=== PATIENT | male | born 1995 | race American Indian/Alaskan Native ===

== ENCOUNTER 2017-03-10 07:25 | Emergency (ER) | payer OTHER ==
[2017-03-10] MEDS ORDERED: PROVENTIL IH ONE (07:46)
[2017-03-10] MEDS ORDERED: ATROVENT IH ONE (07:46)
--- NOTE | 2017-03-10 08:04 | XRay Report ---
ROUTINE CHEST, TWO VIEWS: HISTORY: Shortness of breath. The trachea, heart, mediastinal contour, lung herron and bony thorax are unremarkable. IMPRESSION: Unremarkable chest x-ray.
[2017-03-10] MEDS ORDERED: DELTASONE PO ONE (09:50)
--- NOTE | 2017-03-10 10:39 | Emergency Department Report ---
ED Asthma HPI - General Chief Complaint: Dyspnea/Respdistress Stated Complaint: shortness of breath Time Seen by Provider: 03/10/17 09:44 Source: patient Mode of arrival: Ambulatory Limitations: No Limitations - History of Present Illness Initial Comments: 21-year-old male with a past medical history asthma presents to the hospital complaining of acute wheezing and shortness of breath last night. Positive recent URI symptoms with mild cough that is minimally productive. No complaints of fever or pain. Patient ran out of his inhaler last night. Denies previous intubations. Patient received albuterol 5 mg and Atrovent 0.5 mg prior to my evaluation and reports improvement in symptoms. - Related Data Previous Rx's Medication Instructions Recorded Last Taken Type ALBUTEROL Inhaler [ProAir HFA 2 puff IH QID PRN #1 inhalation 03/10/17 Unknown Rx Inhaler] Prednisone [predniSONE 10 mg 10 mg PO .TAPER #1 tab.ds.pk 03/10/17 Unknown Rx (6-Day Pack, 21 Tabs)] Allergies Allergy/AdvReac Type Severity Reaction Status Date / Time No Known Allergies Allergy Verified 03/10/17 10:05 ED Review of Systems ROS: Stated complaint: shortness of breath Other details as noted in HPI Comment: All other systems reviewed and negative Other: Constitutional: No fevers chills Eyes: No eye pain visual changes ENT: No ear pain or throat pain Neck: Denies pain Respiratory: as per hpi Cardiovascular: Denies chest pain, palpitations, syncope GI: Denies abdominal pain, nausea, vomiting, diarrhea : Denies dysuria Musculoskeletal: Denies back pain Skin: Denies rash, lesions, erythema Neurologic: Denies headache, numbness, weakness Psychiatric: Denies suicidal ideation, hallucinations ED Past Medical Hx - Past Medical History Hx Asthma: Yes - Surgical History Past Surgical History?: No - Social History Smoking Status: Never Smoker Substance Use Type: None - Medications Home Medications: Home Medications Medication Instructions Recorded Confirmed Last Taken Type ALBUTEROL Inhaler [ProAir HFA 2 puff IH QID PRN #1 inhalation 03/10/17 Unknown Rx Inhaler] Prednisone [predniSONE 10 mg 10 mg PO .TAPER #1 tab.ds.pk 03/10/17 Unknown Rx (6-Day Pack, 21 Tabs)] ED Physical Exam - General Limitations: No Limitations - Other Other exam information: General: No limitations, patient is alert in no acute distress Head exam: Atraumatic, normocephalic Eyes exam: Normal appearance ENT: Moist mucous membrane, normal oropharynx Neck exam: Normal inspection, full range of motion, no meningismus nontender Respiratory exam: Clear to auscultation bilateral, no wheezes, rales, crackles ( after nebulized treatment) Cardiovascular: Normal rate and rhythm, normal heart sounds Abdomen: Soft, nondistended, and nontender, with normal bowel sounds, no rebound, or guarding Extremity: Full range of motion normal inspection no deformity Back: Normal Inspection, full range of motion, no tenderness Neurologic: Alert, oriented x3, cranial nerves intact, no motor or sensory deficit Psychiatric: normal affect, normal mood Skin: Warm, dry, intact ED Course Vital Signs 03/10/17 03/10/17 03/10/17 07:35 07:52 08:09 Temperature 98.4 F Pulse Rate 83 Pulse Rate [ 85 88 Bilateral Upper Lobe] Respiratory 18 Rate Respiratory 20 20 Rate [Bilateral Upper Lobe] Blood Pressure 140/96 Blood Pressure [Right] O2 Sat by Pulse 99 Oximetry 03/10/17 03/10/17 03/10/17 08:50 08:55 08:56 Temperature 97.8 F Pulse Rate 79 10 L Pulse Rate [ Bilateral Upper Lobe] Respiratory 10 L 10 L 10 L Rate Respiratory Rate [Bilateral Upper Lobe] Blood Pressure 134/82 Blood Pressure 134/82 [Right] O2 Sat by Pulse 98 100 100 Oximetry - Reevaluation(s) Reevaluation #1: 03/10/17 10:51 Patient is still feeling better after each treatment. ED Medical Decision Making - Radiology Data Radiology results: report reviewed (chest x-ray: No acute findings) - Medical Decision Making Patient feel better patient wheezing and shortness of breath improved after ED treatment. Prednisone initiated. Patient be discharged with treatment for acute asthma exacerbation with a refill of his inhale and prednisone. R - Differential Diagnosis asthma, pneumonia, bronchitis, pneumothorax Critical Care Time: No Critical care attestation.: If time is entered above; I have spent that time in minutes in the direct care of this critically ill patient, excluding procedure time. ED Disposition Clinical Impression: Asthma exacerbation Disposition: - TO HOME OR SELFCARE Is pt being admited?: No Does the pt Need Aspirin: No Condition: Stable Instructions: Asthma (ED) Additional Instructions: Take the medication as prescribed. Return if symptoms worsen. Prescriptions: ALBUTEROL Inhaler [ProAir HFA Inhaler] 2 puff IH QID PRN #1 inhalation PRN Reason: Shortness Of Breath Prednisone [predniSONE 10 mg (6-Day Pack, 21 Tabs)] 10 mg PO .TAPER #1 tab.ds.pk Referrals: PRIMARY CARE, [Primary Care Provider] - 3-5 Days [facility] [Provider Group] - 3-5 Days Time of Disposition: 11:00
[2017-03-10 11:03] VITALS: BP 107/71
== END 2017-03-10 11:02 | disposition home or self-care (01) ==
LOC: EDBD → ED 07:25
DX: J45.901 Unspecified asthma with (acute) exacerbation (principal)
CPT/HCPCS: 71020; 94640; 99283; J7512

== ENCOUNTER 2017-04-11 02:05 | Emergency (ER) | payer OTHER ==
[2017-04-11] MEDS ORDERED: DUONEB *Not for PRN Use IH ONE ×2 (03:06→04:09)
[2017-04-11] MEDS ORDERED: PROVENTIL IH ONE (03:06)
[2017-04-11] MEDS ORDERED: DELTASONE PO ONE (03:06)
--- NOTE | 2017-04-11 03:33 | Emergency Department Report ---
ED Asthma HPI - General Chief Complaint: Adult Asthma Stated Complaint: GEGE; ASTHMA ATTACK Time Seen by Provider: 04/11/17 02:47 Source: patient Mode of arrival: Ambulatory Limitations: No Limitations - History of Present Illness Initial Comments: 21-year-old male past medical history asthma, smoker presents with complaint of intermittent wheezing since earlier yesterday afternoon. Patient states he does not currently have an inhaler. Last asthma attack was approximately 3 weeks ago. Denies any history of intubations in the past for asthma. States he gets attacks periodically throughout the year. On exam patient is awake alert no audible wheezing or stridor no visible respiratory retractions. Patient can speak in full sentences fully lucid and cooperative and appears calm. Patient is receiving his first nebulizer dose during my clinical interview. Patient does not know his baseline peak flow. Patient states that several weeks ago he was given prescription for prednisone and albuterol but did not fill his prescriptions. States he is an active smoker. Denies chest pain fever chills or palpitations. MD Complaint: "asthma attack", wheezing -: hour(s) (9) Asthma History: childhood onset Severity: moderate Context: ran out of meds, medication non-compliance Treatments Prior to Arrival: inhaled bronchodilator - Related Data Current Asthma Therapy: inhaled bronchodilator Previous Rx's Medication Instructions Recorded Last Taken Type ALBUTEROL Inhaler [ProAir HFA 2 puff IH QID PRN #1 inhalation 03/10/17 Unknown Rx Inhaler] Prednisone [predniSONE 10 mg 10 mg PO .TAPER #1 tab.ds.pk 03/10/17 Unknown Rx (6-Day Pack, 21 Tabs)] Albuterol Sulfate [Ventolin HFA] 2 puff IH Q4H PRN #1 hfa.aer.ad 04/11/17 Unknown Rx predniSONE [Deltasone] 40 mg PO QDAY #10 tablet 04/11/17 Unknown Rx Allergies Allergy/AdvReac Type Severity Reaction Status Date / Time No Known Allergies Allergy Verified 03/10/17 10:05 ED Review of Systems ROS: Stated complaint: GEGE; ASTHMA ATTACK Other details as noted in HPI Constitutional: denies: chills, fever Eyes: denies: eye pain, eye discharge, vision change ENT: denies: ear pain, throat pain Respiratory: wheezing. denies: cough, shortness of breath Cardiovascular: denies: chest pain, palpitations Endocrine: no symptoms reported Gastrointestinal: denies: abdominal pain, nausea, diarrhea Genitourinary: denies: urgency, dysuria Musculoskeletal: denies: back pain, joint swelling, arthralgia Skin: denies: rash, lesions Neurological: denies: headache, weakness, paresthesias Psychiatric: denies: anxiety, depression Hematological/Lymphatic: denies: easy bleeding, easy bruising ED Past Medical Hx - Past Medical History Hx Arthritis: Yes Hx Asthma: Yes - Surgical History Past Surgical History?: No - Social History Smoking Status: Current Every Day Smoker Substance Use Type: Alcohol - Medications Home Medications: Home Medications Medication Instructions Recorded Confirmed Last Taken Type ALBUTEROL Inhaler [ProAir HFA 2 puff IH QID PRN #1 inhalation 03/10/17 Unknown Rx Inhaler] Prednisone [predniSONE 10 mg 10 mg PO .TAPER #1 tab.ds.pk 03/10/17 Unknown Rx (6-Day Pack, 21 Tabs)] Albuterol Sulfate [Ventolin HFA] 2 puff IH Q4H PRN #1 hfa.aer.ad 04/11/17 Unknown Rx predniSONE [Deltasone] 40 mg PO QDAY #10 tablet 04/11/17 Unknown Rx ED Physical Exam - General Limitations: No Limitations General appearance: alert, in no apparent distress - Head Head exam: Present: atraumatic, normocephalic - Eye Eye exam: Present: normal appearance - ENT ENT exam: Present: mucous membranes moist - Neck Neck exam: Present: normal inspection - Respiratory Respiratory exam: Present: normal lung sounds bilaterally, wheezes (bilateral fine wheezes lower lung herron). Absent: respiratory distress - Cardiovascular Cardiovascular Exam: Present: regular rate, normal rhythm. Absent: systolic murmur, diastolic murmur, rubs, gallop - GI/Abdominal GI/Abdominal exam: Present: soft, normal bowel sounds - Rectal Rectal exam: Present: deferred - Extremities Exam Extremities exam: Present: normal inspection - Back Exam Back exam: Present: normal inspection - Neurological Exam Neurological exam: Present: alert, oriented X3 - Psychiatric Psychiatric exam: Present: normal affect, normal mood - Skin Skin exam: Present: warm, dry, intact, normal color. Absent: rash ED Course Vital Signs 04/11/17 02:12 Temperature 98.5 F Pulse Rate 104 H Respiratory 20 Rate Blood Pressure 119/81 O2 Sat by Pulse 100 Oximetry ED Medical Decision Making - Medical Decision Making A/P: Asthma exacerbation, reactive airway disease 1- refill on albuterol inhaler. I provided patient with information for good Rx discounts on albuterol and prednisone 2- short course prednisone/taper 3- normal vital signs before discharge, patient does not have any audible wheezing or stridor or retractions before discharge. 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 ED Disposition Clinical Impression: Wheezing Reactive airway disease with wheezing Qualifiers: Asthma severity: mild Asthma persistence: intermittent Asthma complication type : with acute exacerbation Qualified Code(s): J45.21 - Mild intermittent asthma with (acute) exacerbation Asthma exacerbation Qualifiers: Asthma severity: mild Asthma persistence: intermittent Qualified Code(s): J45.21 - Mild intermittent asthma with (acute) exacerbation Disposition: DC-01 TO HOME OR SELFCARE Is pt being admited?: No Does the pt Need Aspirin: No Condition: Stable Instructions: Asthma (ED) Prescriptions: Albuterol Sulfate [Ventolin HFA] 2 puff IH Q4H PRN #1 hfa.aer.ad PRN Reason: Shortness Of Breath predniSONE [Deltasone] 40 mg PO QDAY #10 tablet Referrals: [facility]– [place][Note 2] [Outside] - 3-5 Days [facility] [Provider Group] - 3-5 Days Forms: Work/School Release Form(ED) Time of Disposition: 04:17
[2017-04-11 04:21] VITALS: BP 137/80
== END 2017-04-11 04:39 | disposition home or self-care (01) ==
LOC: ED 02:05
DX: J45.21 Mild intermittent asthma with (acute) exacerbation (principal); F17.200 Nicotine dependence, unspecified, uncomplicated
CPT/HCPCS: 99282; J7512

== ENCOUNTER 2019-02-21 09:03 | Emergency (ER) | payer SELFPAY ==
[2019-02-21] MEDS ORDERED: ZOFRAN IV ONE (09:08)
[2019-02-21] MEDS ORDERED: TORADOL IV ONE (09:08)
[2019-02-21] MEDS ORDERED: NACL 0.9% 1000 ML 1,000 ML IV ONE (09:08)
--- NOTE | 2019-02-21 09:12 | Emergency Department Report ---
ED Abdominal Pain HPI - General Stated Complaint: ABDOMINAL PAIN Time Seen by Provider: 02/21/19 09:06 Source: patient Limitations: No Limitations - History of Present Illness Initial Comments: 23-year-old male, history of asthma, presents to ED with left lower quadrant pain onset 1 hour ago upon waking. Patient reports associated nausea, vomiting. Denies diarrhea. Patient states he feels as if he needs to either urinate or have a bowel movement, but has not done either. Patient denies fever. Patient given Toradol 30 mg by EMS. Patient reports relief. MD Complaint: abdominal pain -: hour(s) (1), This morning Location: [facility] Radiation: none Migration to: no migration Severity: moderate Quality: cramping, sharp Consistency: constant Improves With: vomiting Worsens With: nothing Associated Symptoms: nausea, vomiting. denies: diarrhea, fever, dysuria, hematuria - Related Data Previous Rx's Medication Instructions Recorded Last Taken Type ALBUTEROL Inhaler (OR & NICU) 2 puff IH QID PRN #1 inhalation 03/10/17 Unknown Rx [ProAir HFA Inhaler] Prednisone [predniSONE 10 mg 10 mg PO .TAPER #1 tab.ds.pk 03/10/17 Unknown Rx (6-Day Pack, 21 Tabs)] Albuterol Sulfate [Ventolin HFA] 2 puff IH Q4H PRN #1 hfa.aer.ad 04/11/17 Unknown Rx predniSONE [Deltasone] 40 mg PO QDAY #10 tablet 04/11/17 Unknown Rx HYDROcodone/APAP 5-325 [Dearing 1 each PO Q6HR PRN #7 tablet 02/21/19 Unknown Rx 5/325] Naproxen [Naprosyn] 500 mg PO BID #20 tablet 02/21/19 Unknown Rx Ondansetron [Zofran Odt] 4 mg PO Q8HR PRN #20 tab.rapdis 02/21/19 Unknown Rx Tamsulosin [Flomax] 0.4 mg PO QDAY #5 cap 02/21/19 Unknown Rx Allergies Allergy/AdvReac Type Severity Reaction Status Date / Time No Known Allergies Allergy Verified 03/10/17 10:05 ED Review of Systems ROS: Stated complaint: ABDOMINAL PAIN Other details as noted in HPI Comment: All other systems reviewed and negative Constitutional: denies: chills, fever Gastrointestinal: abdominal pain, nausea, vomiting. denies: diarrhea Genitourinary: denies: dysuria, frequency, hematuria Musculoskeletal: denies: back pain ED Past Medical Hx - Past Medical History Hx Arthritis: Yes Hx Asthma: Yes - Social History Smoking Status: Current Every Day Smoker Substance Use Type: Alcohol - Medications Home Medications: Home Medications Medication Instructions Recorded Confirmed Last Taken Type ALBUTEROL Inhaler (OR & NICU) 2 puff IH QID PRN #1 inhalation 03/10/17 Unknown Rx [ProAir HFA Inhaler] Prednisone [predniSONE 10 mg 10 mg PO .TAPER #1 tab.ds.pk 03/10/17 Unknown Rx (6-Day Pack, 21 Tabs)] Albuterol Sulfate [Ventolin HFA] 2 puff IH Q4H PRN #1 hfa.aer.ad 04/11/17 Unknown Rx predniSONE [Deltasone] 40 mg PO QDAY #10 tablet 04/11/17 Unknown Rx HYDROcodone/APAP 5-325 [Dearing 1 each PO Q6HR PRN #7 tablet 02/21/19 Unknown Rx 5/325] Naproxen [Naprosyn] 500 mg PO BID #20 tablet 02/21/19 Unknown Rx Ondansetron [Zofran Odt] 4 mg PO Q8HR PRN #20 tab.rapdis 02/21/19 Unknown Rx Tamsulosin [Flomax] 0.4 mg PO QDAY #5 cap 02/21/19 Unknown Rx ED Physical Exam - General General appearance: alert, in no apparent distress - Head Head exam: Present: atraumatic, normocephalic - Eye Eye exam: Present: normal appearance, PERRL, EOMI - ENT ENT exam: Present: mucous membranes moist - Neck Neck exam: Present: normal inspection - Respiratory Respiratory exam: Present: normal lung sounds bilaterally. Absent: respiratory distress - Cardiovascular Cardiovascular Exam: Present: regular rate, normal rhythm - GI/Abdominal GI/Abdominal exam: Present: soft, tenderness (mild LLQ tenderness). Absent: distended - Extremities Exam Extremities exam: Present: normal inspection - Back Exam Back exam: Absent: CVA tenderness (R), CVA tenderness (L) - Neurological Exam Neurological exam: Present: alert, oriented X3 - Psychiatric Psychiatric exam: Present: normal affect, normal mood - Skin Skin exam: Present: warm, dry, intact, normal color ED Course Vital Signs 02/21/19 02/21/19 09:06 10:30 Temperature 98.2 F Pulse Rate 88 88 Respiratory 17 17 Rate Blood Pressure 137/81 Blood Pressure 122/70 [Left] O2 Sat by Pulse 99 99 Oximetry ED Medical Decision Making - Lab Data Result diagrams: 02/21/19 Unknown 02/21/19 Unknown - Radiology Data Radiology results: report reviewed, image reviewed - Medical Decision Making 23 yo M with 3mm kidney stone in the distal left ureter with associated mild hydronephrosis. Renal function is normal. Urine shows no evidence of infection. Pain greatly improved with toradol. Will discharge at this time. Prescriptions given. Pt advised to f/u with urology. Return precautions given. - Differential Diagnosis kidney stone, UTI, diverticulitis Critical care attestation.: If time is entered above; I have spent that time in minutes in the direct care of this critically ill patient, excluding procedure time. ED Disposition Clinical Impression: Kidney stone Disposition: DC-01 TO HOME OR SELFCARE Is pt being admited?: No Condition: Stable Instructions: Kidney Stones (ED) Prescriptions: Tamsulosin [Flomax] 0.4 mg PO QDAY #5 cap Naproxen [Naprosyn] 500 mg PO BID #20 tablet HYDROcodone/APAP 5-325 [Dearing 5/325] 1 each PO Q6HR PRN #7 tablet PRN Reason: Pain Ondansetron [Zofran Odt] 4 mg PO Q8HR PRN #20 tab.rapdis PRN Reason: Vomiting Referrals: VASU AYON MD [Staff Physician] - as needed [facility] [Provider Group] - as needed
[2019-02-21 09:43] LABS: Basophils # (Auto) 0.1 K/mm3 (0.0-0.1); Basophils % (Auto) 0.5 % (0.0-1.8); Eosinophils # (Auto) 0.1 K/mm3 (0.0-0.4); Eosinophils % (Auto) 1.1 % (0.0-4.3); Hematocrit 40.8 % (35.5-45.6); Hemoglobin 14.3 gm/dl (11.8-15.2); Lymphocytes # (Auto) 1.9 K/mm3 (1.2-5.4); Lymphocytes % (Auto) 18.7 % (13.4-35.0); Mean Corpuscular HGB Conc 35 % (32-34); Mean Corpuscular Volume 86 fl (84-94); Monocytes # (Auto) 0.8 K/mm3 (0.0-0.8); Monocytes % (Auto) 7.9 % (0.0-7.3); Platelet Count 250 K/mm3 (140-440); Red Blood Count 4.74 M/mm3 (3.65-5.03); Red Cell Distribution Width 13.9 % (13.2-15.2)
--- NOTE | 2019-02-21 10:04 | Cat Scan Report ---
CT abdomen pelvis wo con INDICATION / CLINICAL INFORMATION: LLQ pain. TECHNIQUE: Axial CT imaging of abdomen and pelvis was obtained without contrast. Coronal and sagittal reformatte d imaging obtained and reviewed. All CT scans at this location are performed using CT dose reduction for ALARA by means of automated exposure control. COMPARISON: None available. FINDINGS: CT abdomen without contrast demonstrates grossly normal appearance of the liver, spleen, pancreas, ri ght kidney, and adrenal glands. No obvious gallbladder pathology. There is mild left hydronephrosis. Hydronephrosis is caused by a small calculus in the distal left ur eter, just proximal to the UVJ. Calculus measures 3 mm. No remaining calculi are seen in the left kid hailee. CT pelvis without contrast does not demonstrate any pelvic mass, free fluid, or focal inflammatory ch raf. Retrocecal appendix is unremarkable. GI tract is grossly normal. Visualized lung bases are clear. No significant osseous abnormality. IMPRESSION: Mild left hydronephrosis caused by a 3 mm calculus in the distal left ureter. Signer Name: Ann Saavedra MD Signed: 02/21/2019 10:00 AM Workstation Name: [id number]
[2019-02-21 10:06] LABS: BUN/Creatinine Ratio 11; Blood Urea Nitrogen 12 mg/dL (9-20); Calcium 8.9 mg/dL (8.4-10.2)
[2019-02-21 10:07] LABS: Alanine Aminotransferase 10 units/L (7-56); Hemolysis Index 10
[2019-02-21 10:16] LABS: Bilirubin,Direct < 0.2 mg/dL (0-0.2)
[2019-02-21 10:25] LABS: Bilirubin,Urine NEG (Negative); Blood,Urine LG (Negative); Color,Urine Yellow (Yellow); Mucus,Urine FEW /HPF; Urobilinogen,Urine < 2.0 mg/dL (<2.0)
[2019-02-21 10:27] LABS: RBC,Urine > 182.0 /HPF (0.0-6.0)
[2019-02-21 10:31] VITALS: BP 122/70
== END 2019-02-21 10:45 | disposition home or self-care (01) ==
LOC: ED 09:03
DX: N20.0 Calculus of kidney (principal); F17.200 Nicotine dependence, unspecified, uncomplicated; J45.909 Unspecified asthma, uncomplicated; M19.90 Unspecified osteoarthritis, unspecified site
CPT/HCPCS: 36415; 74176; 80048; 80076; 81001; 85025; 96361; 96374; 99284; J2405; J7030